=== PATIENT | male | born 1955 | race African-American/Black ===

== ENCOUNTER 2020-11-28 15:37 | Inpatient (IN) | payer MEDICARE, MEDICAID ==
[~2020-11-28] VITALS: Ht 167.6 cm; Wt 82.7 kg
[2020-11-28 17:36] LABS: BASOPHILS % 0.7 % (0.0-2.0); EOSINOPHILS % 1.9 % (0.0-5.0); HEMATOCRIT. 38.2 % (42.0-52.0); HEMOGLOBIN. 12.8 g/dL (14.0-18.0); LYMPHOCYTES % 28.9 % (20.0-50.0); MEAN CORPUSCULAR HEMOGLOBIN 30.6 pg (28.0-32.0); MEAN PLATELET VOLUME 8.9 fl (7.4-10.4); MONOCYTES % 12.6 % (2.0-8.0); NEUTROPHILS % 55.9 % (40.0-76.0); PLATELET 279 x1000/uL (130-400); RED CELL DISTRIBUTION WIDTH 15.7 % (11.6-14.6)
[2020-11-28 17:45] LABS: CHLORIDE 106 mEq/L (98-107)
[2020-11-28 17:46] LABS: INR 1.1; PROTHROMBIN TIME 11.3 sec (9.6-11.0)
[2020-11-28 17:47] LABS: ETHANOL BLOOD < 10 mg/dL
[2020-11-28 17:50] LABS: LDL CHOLESTEROL 53 mg/dL (5-100)
[2020-11-28] MEDS ORDERED: DOCUSATE SODIUM 100MG CAPSULE PO PRN (20:30)
[2020-11-28] MEDS ORDERED: KETOROLAC 15MG/ML VIAL IV PRN (20:30)
[2020-11-28] MEDS ORDERED: ZOLPIDEM TARTRATE 5MG TABLET PO PRN (20:30)
[2020-11-28] MEDS ORDERED: IPRATROPIUM/ALBUTEROL 0.5-3(2.5)MG/3ML NEB NEB PRN (20:30)
[2020-11-28] MEDS ORDERED: ONDANSETRON HCL 4MG/2ML INJ IV PRN (20:30)
[2020-11-28] MEDS ORDERED: NITROGLYCERIN 0.4MG TABLET SL SL PRN (20:30)
[2020-11-28] MEDS ORDERED: CLONIDINE 0.1MG TABLET PO PRN (20:30)
[2020-11-28] MEDS ORDERED: MAGNESIUM/ALUMINUM HYDROXIDE/SIMETHICONE 30ML UDC PO PRN (20:30)
[2020-11-28] MEDS ORDERED: GUAIFENESIN 200MG/10ML SUGAR FREE UDC PO PRN (20:30)
[2020-11-28] MEDS ORDERED: ACETAMINOPHEN 325MG TABLET PO PRN ×2 (20:30)
[2020-11-28] MEDS: ENOXAPARIN 40MG/0.4ML SYR SUBCUT SCH (22:10)
[2020-11-28] MEDS: ASCORBIC ACID 500 MG TABLET PO SCH (22:10)
[2020-11-28] MEDS: LISINOPRIL 20MG TABLET PO SCH (22:11)
[2020-11-28] MEDS: FAMOTIDINE 20MG TABLET PO SCH (22:11)
[2020-11-28] MEDS ORDERED: IOHEXOL-300 100 ML BOTTLE ONE (23:31)
[2020-11-28 23:43] LABS: TOTAL IRON BINDING CAPACITY 323 ug/dL (250-450)
[2020-11-28 23:58] LABS: FOLIC ACID (FOLATE) SERUM 14.7 ng/mL (>5.38)
[2020-11-29] VITALS (7 sets, daily range): BP systolic 128–153; BP diastolic 84–104
[2020-11-29 08:43] LABS: BASOPHILS % 1.2 % (0.0-2.0); EOSINOPHILS % 3.8 % (0.0-5.0); HEMATOCRIT. 41.7 % (42.0-52.0); HEMOGLOBIN. 13.7 g/dL (14.0-18.0); LYMPHOCYTES % 36.9 % (20.0-50.0); MEAN CORPUSCULAR HEMOGLOBIN 30.3 pg (28.0-32.0); MEAN CORPUSCULAR VOLUME 92.2 fL (80.0-94.0); MEAN PLATELET VOLUME 7.2 fl (7.4-10.4); NEUTROPHILS % 46.1 % (40.0-76.0); PLATELET 314 x1000/uL (130-400); RED BLOOD CELL COUNT 4.53 mill/uL (4.7-6.1)
[2020-11-29 09:00] LABS: CHLORIDE 106 mEq/L (98-107)
[2020-11-29] MEDS: FAMOTIDINE 20MG TABLET PO SCH ×2 (09:02→21:26)
[2020-11-29] MEDS: CHOLECALCIFEROL (D3) 1000 UNIT TABLET PO SCH (09:03)
[2020-11-29] MEDS: ASCORBIC ACID 500 MG TABLET PO SCH ×2 (09:03→21:26)
[2020-11-29] MEDS: LISINOPRIL 20MG TABLET PO SCH ×2 (09:04→21:26)
[2020-11-29] MEDS: ASPIRIN 325MG EC TABLET PO SCH (09:05)
[2020-11-29 09:08] LABS: PHOSPHORUS 3.2 mg/dL (2.5-4.9)
[2020-11-29] MEDS: ZINC SULFATE 220 MG ( 50 ) CAPSULE PO SCH (09:09)
[2020-11-29 09:10] LABS: CREATINE KINASE 189 IU/L (39-308)
[2020-11-29 09:13] LABS: CREATINE KINASE MB FRACTION < 1.0 ng/mL (0.5-3.6)
[2020-11-29] MEDS: ENOXAPARIN 40MG/0.4ML SYR SUBCUT SCH (21:28)
[2020-11-30] VITALS: BP 146/85
[2020-11-30 03:07] LABS: CLARITY URINE CLEAR (CLEAR); COLOR URINE YELLOW (YELLOW); KETONES URINE TRACE (NEGATIVE); LEUKOCYTE ESTERASE URINE NEGATIVE (NEGATIVE); NITRITE URINE NEGATIVE (NEGATIVE); OCCULT BLOOD URINE NEGATIVE (NEGATIVE); PH URINE 6.5 (4.5-8.0); PROTEIN URINE NEGATIVE (NEGATIVE); SPECIFIC GRAVITY URINE 1.012 (1.005-1.030); UROBILINOGEN URINE 0.2 E.U./dL (0.2-1.0)
[2020-11-30 03:26] LABS: *AMPHETAMINES SCREEN URINE NEGATIVE (NEGATIVE); *BARBITURATES SCREEN URINE NEGATIVE (NEGATIVE); *BENZODIAZEPINES SCREEN URINE NEGATIVE (NEGATIVE); *COCAINE SCREEN URINE NEGATIVE (NEGATIVE)
[2020-11-30 03:27] LABS: CANNABINOID URINE SCREEN NEGATIVE (NEGATIVE); METHADONE URINE SCREEN NEGATIVE (NEGATIVE); OPIATES URINE SCREEN NEGATIVE (NEGATIVE); PHENCYCLIDINE URINE SCREEN NEGATIVE (NEGATIVE)
[2020-11-30 04:00] VITALS: BP 138/95
[2020-11-30 08:26] VITALS: BP 154/96
[2020-11-30] MEDS: CHOLECALCIFEROL (D3) 1000 UNIT TABLET PO SCH (09:05)
[2020-11-30] MEDS: ZINC SULFATE 220 MG ( 50 ) CAPSULE PO SCH (09:05)
[2020-11-30] MEDS: ASCORBIC ACID 500 MG TABLET PO SCH (09:06)
[2020-11-30] MEDS: LISINOPRIL 20MG TABLET PO SCH (09:06)
[2020-11-30] MEDS: FAMOTIDINE 20MG TABLET PO SCH (09:06)
[2020-11-30] MEDS: ASPIRIN 325MG EC TABLET PO SCH (09:09)
[2020-11-30 12:30] VITALS: BP 168/97
[2020-11-30 16:56] VITALS: BP 168/97
== END 2020-11-30 19:10 | disposition home health service (06) | DRG 52 ==
LOC: ER 17:48 → 6WST 20:18 → EDBD 20:18 → EDBEDREQSVC 20:31 → EDBEDREQ 20:31 → EDBEDREQTM 20:31 → ENRESERV 21:39
PROVIDERS: ADMIT Internal Medicine; ATTEND Internal Medicine
DX: G92 Toxic encephalopathy (principal); E44.0 Moderate protein-calorie malnutrition; D63.8 Anemia in other chronic diseases classified elsewhere; I10 Essential (primary) hypertension; E78.00 Pure hypercholesterolemia, unspecified; F17.200 Nicotine dependence, unspecified, uncomplicated; Z86.73 Personal history of transient ischemic attack (TIA), and cerebral infarction without residual deficits; Z79.899 Other long term (current) drug therapy; Z68.29 Body mass index [BMI] 29.0-29.9, adult; E83.51 Hypocalcemia
CPT/HCPCS: 36415; 70496; 70498; 70551; 71045; 80053; 80305; 80320; 81003; 82550; 82553; 82607; 82746; 82962; 83036; 83540; 83550; 83721; 83735; 84100; 84484; 85025; 93005; 93970; 97162; 99285; J1650; Q9967; G0480